=== PATIENT | female | born 1965 | race African-American/Black ===

== ENCOUNTER 2022-03-18 00:51 | Emergency (ER) | payer MEDICAID, OTHER ==
[~2022-03-18] VITALS: Ht 162.6 cm; Wt 113.0 kg
[2022-03-18 00:58] VITALS: BP 147/72
[2022-03-18] MEDS ORDERED: IBUPROFEN 800MG TABLET PO ONE (03:00)
[2022-03-18] MEDS ORDERED: IBUP-2029 MT (03:08)
== END 2022-03-18 03:55 | disposition home or self-care (01) ==
LOC: ER 00:51
DX: R51.9 Headache, unspecified (principal); E11.9 Type 2 diabetes mellitus without complications; I10 Essential (primary) hypertension; Z88.6 Allergy status to analgesic agent; Z88.5 Allergy status to narcotic agent
CPT/HCPCS: 82962; 99282

== ENCOUNTER 2024-01-02 17:21 | Inpatient (IN) | payer MEDICAID ==
[~2024-01-02] VITALS: Ht 162.6 cm; Wt 113.4 kg
[~2024-01-02 17:21] MED LIST: IBUP-2029 MT
[2024-01-02] MEDS: PIPERACILLIN/TAZO 3.375G/50ML 50 ML IV ONE (18:30)
[2024-01-02] MEDS ORDERED: VANCOMYCIN 1G PREMIX 200 ML IV ONE (18:30)
[2024-01-02] MEDS: SODIUM CHLORIDE 0.9% 1,000 ML IV ONE (18:30)
[2024-01-02 19:51] LABS: BASOPHILS % 0.5 % (0.0-2.0); CHLORIDE 107 mEq/L (98-107); HEMATOCRIT. 34.3 % (36.0-48.0); HEMOGLOBIN. 10.9 g/dL (12.0-16.0); MEAN CORPUSCULAR HEMOGLOBIN 28.2 pg (28.0-32.0); MEAN CORPUSCULAR HGB CONC 31.7 g/dL (31.0-37.0); MEAN CORPUSCULAR VOLUME 88.8 fL (81.0-99.0); MEAN PLATELET VOLUME 8.8 fl (7.4-10.4); MONOCYTES % 8.6 % (2.0-8.0); NEUTROPHILS % 74.9 % (40.0-76.0); PLATELET 377 x1000/uL (130-400); POTASSIUM 3.4 mEq/L (3.5-5.1); RED BLOOD CELL COUNT 3.86 mill/uL (4.2-5.4); RED CELL DISTRIBUTION WIDTH 15.8 % (11.6-14.6); SODIUM 140 mEq/L (136-145); WHITE BLOOD COUNT 8.4 x1000/uL (4.5-11.0)
[2024-01-02 19:52] LABS: CALCIUM 9.6 mg/dL (8.7-10.4); CARBON DIOXIDE 24 mEq/L (21-32)
[2024-01-02 19:56] LABS: PARTIAL THROMBOPLASTIN TIME 28.8 sec (23.4-31.0); PROTHROMBIN TIME 11.1 sec (9.6-11.0)
[2024-01-02 19:57] LABS: CREATININE 1.1 mg/dL (0.6-1.0); GLUCOSE 90 mg/dL (70-105); UREA NITROGEN BLOOD 9 mg/dL (9-23)
[2024-01-02 19:58] LABS: TROPONIN I HIGH SENSITIVITY 11 ng/L (3.0-34)
[2024-01-02 19:59] LABS: ALANINE AMINOTRANSFERASE 11 IU/L (10-49); ALBUMIN 4.2 g/dL (3.2-4.8); ASPARTATE AMINOTRANSFERASE 14 IU/L (<34); BILIRUBIN TOTAL 0.5 mg/dL (0.1-1.0); PROTEIN TOTAL 7.7 g/dL (6.0-8.3)
[2024-01-02] MEDS ORDERED: IPRATROPIUM/ALBUTEROL 0.5-3(2.5)MG/3ML NEB HHN PRN (21:30)
[2024-01-02] MEDS ORDERED: ONDANSETRON HCL 4MG/2ML INJ IV PRN (21:30)
[2024-01-02] MEDS ORDERED: DOCUSATE SODIUM 100MG CAPSULE PO PRN (21:30)
[2024-01-02] MEDS ORDERED: PIPERACILLIN/TAZOBACTAM 3.375 G in DEXTROSE 5% WATER 50 ML IV SCH (21:30)
[2024-01-02] MEDS ORDERED: SODIUM CHLORIDE 0.9% 1,000 ML IV SCH (21:30)
[2024-01-02] MEDS ORDERED: LORAZEPAM 2MG/ML INJ IV PRN (21:30)
[2024-01-02] MEDS ORDERED: GUAIFENESIN 200MG/10ML SUGAR FREE UDC PO PRN (21:30)
[2024-01-02] MEDS: PIPERACILLIN/TAZO 3.375G/50ML IV SCH (22:28)
[2024-01-02] MEDS: VANCOMYCIN 2,000 MG in DEXT 5% WATER 500 ML IV NR (23:16)
[2024-01-02 23:29] LABS: PHOSPHORUS 3.3 mg/dL (2.5-4.9)
[2024-01-03] VITALS (7 sets, daily range): BP systolic 104–139; BP diastolic 51–72; PULSE 61–82; RESP 16–19; TEMP 36.2512–37.16964; O2SAT 97–100
[2024-01-03] MEDS: SODIUM CHLORIDE 0.9% 1,000 ML IV SCH (04:45)
[2024-01-03] MEDS: KETOROLAC 10MG TABLET PO PRN (05:08)
[2024-01-03 06:12] LABS: BASOPHILS % 0.3 % (0.0-2.0); EOSINOPHILS % 2.8 % (0.0-5.0); HEMATOCRIT. 32.1 % (36.0-48.0); HEMOGLOBIN. 10.5 g/dL (12.0-16.0); LYMPHOCYTES % 19.1 % (20.0-50.0); MEAN CORPUSCULAR HEMOGLOBIN 28.8 pg (28.0-32.0); MEAN CORPUSCULAR HGB CONC 32.9 g/dL (31.0-37.0); MEAN CORPUSCULAR VOLUME 87.7 fL (81.0-99.0); MEAN PLATELET VOLUME 8.8 fl (7.4-10.4); MONOCYTES % 12.3 % (2.0-8.0); NEUTROPHILS % 65.5 % (40.0-76.0); PLATELET 334 x1000/uL (130-400); RED BLOOD CELL COUNT 3.66 mill/uL (4.2-5.4); RED CELL DISTRIBUTION WIDTH 15.7 % (11.6-14.6); WHITE BLOOD COUNT 7.1 x1000/uL (4.5-11.0)
[2024-01-03 06:20] LABS: CARBON DIOXIDE 26 mEq/L (21-32); CHLORIDE 109 mEq/L (98-107); POTASSIUM 3.4 mEq/L (3.5-5.1); SODIUM 140 mEq/L (136-145)
[2024-01-03 06:21] LABS: CALCIUM 9.3 mg/dL (8.7-10.4)
[2024-01-03] MEDS: POTASSIUM CHLORIDE 20MEQ TABLET SR PO NR ×2 (06:22→16:00)
[2024-01-03 06:26] LABS: CREATININE 0.8 mg/dL (0.6-1.0); GLUCOSE 131 mg/dL (70-105); UREA NITROGEN BLOOD 7 mg/dL (9-23)
[2024-01-03 06:28] LABS: THYROID STIMULATING HORMONE 0.68 uIU/mL (0.55-4.78)
[2024-01-03] MEDS: ENOXAPARIN 30MG/0.3ML SYR SUBCUT SCH (08:12)
[2024-01-03 11:29] LABS: IRON 25 ug/dL (50-170); TRIGLYCERIDE 52 mg/dL (0-150)
[2024-01-03 11:30] LABS: LDL CHOLESTEROL 79 mg/dL (5-100)
[2024-01-03 11:31] LABS: CHOLESTEROL 128 mg/dL (<200); HDL CHOLESTEROL 36 mg/dL (>65)
[2024-01-03 11:32] LABS: TOTAL IRON BINDING CAPACITY 316 ug/dl (250-425)
[2024-01-03 11:35] LABS: VITAMIN B12 SERUM 753 pg/mL (211-911)
[2024-01-03 11:36] LABS: FERRITIN 142 ng/mL (10-291); FOLIC ACID (FOLATE) SERUM > 20.00 ng/mL (>5.38)
[2024-01-03] MEDS: PIPERACILLIN/TAZO 3.375G/50ML IV SCH (15:03)
[2024-01-03] MEDS ORDERED: ACETAMINOPHEN 325MG TABLET PO PRN (15:15)
[2024-01-03 18:11] LABS: CREATINE KINASE MB FRACTION 0.6 ng/mL (0.5-3.6)
[2024-01-03] MEDS: FUROSEMIDE 20MG/2ML VIAL IVP NR (20:19)
[2024-01-03] MEDS: VANCOMYCIN 1.25GM PMX (XELLIA) 250 ML IV SCH (21:06)
[2024-01-04] VITALS: BP 139/56; PULSE 87; RESP 20; TEMP 37.16964; O2SAT 100
[2024-01-04 04:00] VITALS: BP 137/68; PULSE 92; RESP 16; TEMP 36.28068; O2SAT 98
[2024-01-04 06:06] LABS: HEMATOCRIT 35.2 % (36.0-48.0); HEMOGLOBIN 11.5 g/dL (12.0-16.0); MEAN CORPUSCULAR HGB CONC 32.7 g/dL (31.0-37.0); MEAN CORPUSCULAR VOLUME 88.4 fL (81.0-99.0); PLATELET 349 x1000/uL (130-400); RED BLOOD CELL COUNT 3.98 mill/uL (4.2-5.4); RED CELL DISTRIBUTION WIDTH 15.5 % (11.6-14.6); WHITE BLOOD COUNT 5.3 x1000/uL (4.5-11.0)
[2024-01-04 06:19] LABS: CARBON DIOXIDE 24 mEq/L (21-32); CHLORIDE 108 mEq/L (98-107); POTASSIUM 3.9 mEq/L (3.5-5.1); SODIUM 141 mEq/L (136-145)
[2024-01-04 06:20] LABS: CALCIUM 9.7 mg/dL (8.7-10.4)
[2024-01-04 06:24] LABS: GLUCOSE 105 mg/dL (70-105)
[2024-01-04 06:27] LABS: UREA NITROGEN BLOOD < 5 mg/dL (9-23)
[2024-01-04 08:00] VITALS: BP 138/81; PULSE 82; RESP 20; TEMP 37.05852; O2SAT 99
[2024-01-04] MEDS: KETOROLAC 15MG/ML VIAL IV PRN (10:35)
[2024-01-04 12:00] VITALS: BP 140/68; PULSE 74; RESP 18; TEMP 36.50292; O2SAT 98
[2024-01-04] MEDS: FUROSEMIDE 20MG/2ML VIAL IVP SCH (12:01)
[2024-01-04 16:00] VITALS: BP 146/73; PULSE 83; RESP 19; TEMP 37.05852; O2SAT 98
[2024-01-04 20:00] VITALS: BP 146/72; PULSE 74; RESP 20; TEMP 36.61404; O2SAT 100
[2024-01-05 04:00] VITALS: BP 144/70; PULSE 69; RESP 17; TEMP 35.8362; O2SAT 99
[2024-01-05 08:00] VITALS: BP 146/75; PULSE 78; RESP 19; TEMP 36.44736; O2SAT 95
[2024-01-05] MEDS: FERROUS SULFATE 325MG TABLET PO SCH (09:47)
[2024-01-05 10:18] LABS: HEMOGLOBIN 10.5 g/dL (12.0-16.0); MEAN CORPUSCULAR HGB CONC 31.9 g/dL (31.0-37.0); MEAN CORPUSCULAR VOLUME 87.9 fL (81.0-99.0); PLATELET 314 x1000/uL (130-400); RED BLOOD CELL COUNT 3.75 mill/uL (4.2-5.4); RED CELL DISTRIBUTION WIDTH 15.7 % (11.6-14.6); WHITE BLOOD COUNT 4.4 x1000/uL (4.5-11.0)
[2024-01-05 10:33] LABS: CALCIUM 9.2 mg/dL (8.7-10.4); CHLORIDE 108 mEq/L (98-107); POTASSIUM 3.5 mEq/L (3.5-5.1); SODIUM 141 mEq/L (136-145)
[2024-01-05 10:34] LABS: CARBON DIOXIDE 26 mEq/L (21-32)
[2024-01-05 10:39] LABS: GLUCOSE 134 mg/dL (70-105); UREA NITROGEN BLOOD 6 mg/dL (9-23)
[2024-01-05 12:00] VITALS: BP 148/69; PULSE 70; RESP 19; TEMP 35.94732; O2SAT 99
[2024-01-05 16:00] VITALS: BP 145/61; PULSE 75; RESP 20; TEMP 36.55848; O2SAT 99
[2024-01-05 20:00] VITALS: BP 140/65; PULSE 80; RESP 20; TEMP 37.00296; O2SAT 99
[2024-01-05] MEDS: CLONIDINE 0.1MG TABLET PO PRN (20:39)
[2024-01-06] VITALS: BP 148/62; PULSE 82; RESP 20; TEMP 36.72516; O2SAT 99
[2024-01-06 04:00] VITALS: BP 153/71; PULSE 84; RESP 20; TEMP 36.72516; O2SAT 97
[2024-01-06 07:17] LABS: CARBON DIOXIDE 26 mEq/L (21-32); CHLORIDE 109 mEq/L (98-107); POTASSIUM 3.9 mEq/L (3.5-5.1); SODIUM 141 mEq/L (136-145)
[2024-01-06 07:18] LABS: CALCIUM 9.1 mg/dL (8.7-10.4)
[2024-01-06 07:23] LABS: CREATININE 0.9 mg/dL (0.6-1.0); GLUCOSE 85 mg/dL (70-105); HEMATOCRIT 32.3 % (36.0-48.0); HEMOGLOBIN 10.5 g/dL (12.0-16.0); MEAN CORPUSCULAR HEMOGLOBIN 28.4 pg (28.0-32.0); MEAN CORPUSCULAR HGB CONC 32.4 g/dL (31.0-37.0); MEAN CORPUSCULAR VOLUME 87.6 fL (81.0-99.0); PLATELET 326 x1000/uL (130-400); RED BLOOD CELL COUNT 3.69 mill/uL (4.2-5.4); RED CELL DISTRIBUTION WIDTH 15.6 % (11.6-14.6); UREA NITROGEN BLOOD 6 mg/dL (9-23); WHITE BLOOD COUNT 4.9 x1000/uL (4.5-11.0)
[2024-01-06 08:00] VITALS: BP 151/62; PULSE 79; RESP 18; TEMP 36.3918; O2SAT 98
[2024-01-06 12:00] VITALS: BP 165/72; PULSE 75; RESP 18; TEMP 36.89184; O2SAT 100
[2024-01-06] MEDS ORDERED: SULF1TAB48 MT (14:16)
[2024-01-06] MEDS ORDERED: AMOX1TAB16 MT (14:16)
[2024-01-06 16:00] VITALS: BP 140/66; PULSE 74; RESP 18; TEMP 37.00296; O2SAT 100
[2024-01-06 20:00] VITALS: BP 117/49; PULSE 75; RESP 18; TEMP 36.61404; O2SAT 98
[2024-01-07] VITALS: BP 140/62; PULSE 77; RESP 19; TEMP 36.78072; O2SAT 99
[2024-01-07] MEDS: KETOROLAC 15MG/ML VIAL IV PRN ×2 (03:37→11:26)
[2024-01-07 04:00] VITALS: BP 128/50; PULSE 68; RESP 18; TEMP 36.89184; O2SAT 97
[2024-01-07 08:00] VITALS: BP 156/59; PULSE 68; RESP 17; TEMP 36.3918; O2SAT 98
[2024-01-07 12:00] VITALS: BP 132/64; PULSE 73; RESP 18; TEMP 37.00296; O2SAT 97
[2024-01-07 16:00] VITALS: BP 140/62; PULSE 76; RESP 18; TEMP 36.9474; O2SAT 97
[2024-01-07 20:00] VITALS: BP 134/56; PULSE 74; RESP 19; TEMP 36.16956; O2SAT 100
[2024-01-08] VITALS: BP 112/56; PULSE 89; RESP 18; TEMP 35.61396; O2SAT 99
[2024-01-08 07:09] LABS: CARBON DIOXIDE 25 mEq/L (21-32); CHLORIDE 109 mEq/L (98-107); POTASSIUM 3.7 mEq/L (3.5-5.1); SODIUM 142 mEq/L (136-145)
[2024-01-08 07:10] LABS: CALCIUM 9.1 mg/dL (8.7-10.4)
[2024-01-08 07:14] LABS: CREATININE 0.9 mg/dL (0.6-1.0)
[2024-01-08 07:15] LABS: GLUCOSE 86 mg/dL (70-105); UREA NITROGEN BLOOD 6 mg/dL (9-23)
[2024-01-08 07:22] LABS: HEMOGLOBIN 10.3 g/dL (12.0-16.0); MEAN CORPUSCULAR HEMOGLOBIN 28.5 pg (28.0-32.0); MEAN CORPUSCULAR HGB CONC 32.3 g/dL (31.0-37.0); MEAN CORPUSCULAR VOLUME 88.1 fL (81.0-99.0); PLATELET 351 x1000/uL (130-400); RED BLOOD CELL COUNT 3.64 mill/uL (4.2-5.4); RED CELL DISTRIBUTION WIDTH 15.6 % (11.6-14.6); WHITE BLOOD COUNT 5.8 x1000/uL (4.5-11.0)
[2024-01-08 08:00] VITALS: BP 141/56; PULSE 69; RESP 18; TEMP 36.72516; O2SAT 95
[2024-01-08 12:00] VITALS: BP 137/55; PULSE 71; RESP 19; TEMP 36.72516; O2SAT 96
[2024-01-08 16:00] VITALS: BP 158/87; PULSE 68; RESP 18; TEMP 36.61404; O2SAT 100
[2024-01-08 20:00] VITALS: BP 140/58; PULSE 79; RESP 18; TEMP 37.00296; O2SAT 100
[2024-01-08] MEDS: VANCOMYCIN 1.5GM/250ML IV SCH (21:30)
[2024-01-09] VITALS: BP 121/65; PULSE 61; RESP 17; TEMP 36.16956; O2SAT 98
[2024-01-09 04:00] VITALS: BP 119/60; PULSE 71; RESP 20; TEMP 36.3918; O2SAT 99
[2024-01-09 08:00] VITALS: BP 123/50; PULSE 72; RESP 18; TEMP 36.05844; O2SAT 100
[2024-01-09 12:00] VITALS: BP 131/71; PULSE 68; RESP 18; TEMP 35.78064; O2SAT 96
[2024-01-09 16:00] VITALS: BP 142/78; PULSE 70; RESP 20; TEMP 36.55848; O2SAT 99
[2024-01-09 20:00] VITALS: BP 140/51; PULSE 72; RESP 19; TEMP 36.3918; O2SAT 99
[2024-01-10] VITALS: BP 134/57; PULSE 73; RESP 16; TEMP 37.16964; O2SAT 100
[2024-01-10 04:00] VITALS: BP 162/73; PULSE 72; RESP 19; TEMP 37.05852; O2SAT 100
[2024-01-10] MEDS: KETOROLAC 15MG/ML VIAL IV PRN (15:40)
[2024-01-10 20:00] VITALS: BP 140/60; PULSE 86; RESP 16; TEMP 36.3918; O2SAT 99
[2024-01-11] VITALS: BP 135/61; PULSE 75; RESP 19; TEMP 36.78072; O2SAT 98
[2024-01-11 04:00] VITALS: BP 142/68; PULSE 85; RESP 17; TEMP 36.28068; O2SAT 100
[2024-01-11 08:00] VITALS: BP 144/58; PULSE 70; RESP 18; TEMP 36.50292; O2SAT 96
[2024-01-11 12:00] VITALS: BP 137/50; PULSE 72; RESP 17; TEMP 36.3918; O2SAT 98
[2024-01-11 16:00] VITALS: BP 148/66; PULSE 76; RESP 18; TEMP 35.5584; O2SAT 97
[2024-01-11] MEDS: KETOROLAC 30MG/ML VIAL IV STA (18:47)
[2024-01-11] MEDS ORDERED: KETOROLAC 15MG/ML VIAL IV PRN (19:15)
[2024-01-11 20:00] VITALS: BP 121/51; PULSE 80; RESP 18; TEMP 36.16956; O2SAT 95
[2024-01-12 04:00] VITALS: BP 127/62; PULSE 81; RESP 18; TEMP 35.94732; O2SAT 96
[2024-01-12] MEDS: HYDROCODONE/ACETAMINOPHEN 5/325MG TABLET PO NR (06:52)
[2024-01-12 08:00] VITALS: BP 112/70; PULSE 74; RESP 18; TEMP 36.3918; O2SAT 97
[2024-01-12] MEDS: FUROSEMIDE 20MG TABLET PO SCH (10:06)
[2024-01-12] MEDS ORDERED: HYDROCODONE/ACETAMINOPHEN 5/325MG TABLET PO PRN (10:30)
[2024-01-12] MEDS ORDERED: NALOXONE HCL 0.4MG/ML VIAL IV PRN (10:45)
[2024-01-12 12:00] VITALS: BP 145/72; PULSE 87; RESP 19; TEMP 35.78064; O2SAT 95
[2024-01-12] MEDS ORDERED: ACETAMINOPHEN 325MG TABLET PO PRN (15:15)
[2024-01-12 16:00] VITALS: BP 135/51; PULSE 71; RESP 18; TEMP 36.50292; O2SAT 99
[2024-01-12] MEDS: IBUPROFEN 400MG TABLET PO PRN (16:27)
[2024-01-12] MEDS: SULFAMETHOXAZOLE/TRIMETHOPRIM 800/160MG TABLET PO SCH (18:08)
[2024-01-12] MEDS: AMOXICILLIN/POTASSIUM CLAVULANATE 875/125MG TAB PO SCH (18:08)
[2024-01-12 20:00] VITALS: BP 125/62; PULSE 85; RESP 18; TEMP 36.89184; O2SAT 99
[2024-01-13 04:00] VITALS: BP 127/62; PULSE 80; RESP 18; TEMP 37.11408; O2SAT 97
[2024-01-13 08:00] VITALS: BP 137/56; PULSE 69; RESP 19; TEMP 36.05844; O2SAT 96
[2024-01-13 12:00] VITALS: BP 136/74; PULSE 66; RESP 18; TEMP 36.61404; O2SAT 97
[2024-01-13 16:00] VITALS: BP 135/54; PULSE 64; RESP 19; TEMP 36.50292; O2SAT 97
[2024-01-13 20:00] VITALS: BP 145/63; PULSE 72; RESP 18; TEMP 37.11408; O2SAT 100
[2024-01-14] VITALS: BP 118/46; PULSE 69; RESP 18; TEMP 36.78072; O2SAT 99
[2024-01-14 04:00] VITALS: BP 142/69; PULSE 64; RESP 18; TEMP 36.61404; O2SAT 99
[2024-01-14 08:00] VITALS: BP 137/59; PULSE 68; RESP 18; TEMP 36.3918; O2SAT 95
[2024-01-14] MEDS: KETOROLAC 10MG TABLET PO NR ×2 (11:32→22:28)
[2024-01-14 12:00] VITALS: BP 143/67; PULSE 62; RESP 18; TEMP 36.61404; O2SAT 98
[2024-01-14 16:00] VITALS: BP 131/86; PULSE 65; RESP 18; TEMP 36.50292; O2SAT 100
[2024-01-14 20:00] VITALS: BP 128/42; PULSE 65; RESP 18; TEMP 36.50292; O2SAT 99
[2024-01-15] VITALS: BP 176/75; PULSE 64; RESP 18; TEMP 37.11408; O2SAT 97
[2024-01-15 04:00] VITALS: BP 121/46; PULSE 66; RESP 18; TEMP 36.61404; O2SAT 99
[2024-01-15 08:00] VITALS: BP 137/67; PULSE 65; RESP 18; TEMP 36.72516; O2SAT 100
[2024-01-15 12:00] VITALS: BP 153/73; PULSE 60; RESP 18; TEMP 36.50292; O2SAT 98
[2024-01-15 16:00] VITALS: BP 127/72; PULSE 64; RESP 18; TEMP 36.78072; O2SAT 100
[2024-01-15 20:00] VITALS: BP 155/77; PULSE 65; RESP 20; TEMP 37.00296; O2SAT 100
[2024-01-15] MEDS: ENOXAPARIN 40MG/0.4ML SYR SUBCUT SCH (21:34)
[2024-01-16] VITALS: BP 140/62; PULSE 71; RESP 16; TEMP 36.33624; O2SAT 98
[2024-01-16 04:00] VITALS: BP 149/70; PULSE 62; RESP 19; TEMP 36.114; TEMP 36.11400; O2SAT 100
[2024-01-16 06:33] VITALS: RESP 19
[2024-01-16 16:03] VITALS: BP 120/70; PULSE 70; TEMP 97.9; O2SAT 98
== END 2024-01-16 17:30 | disposition home health service (06) | DRG 383 ==
LOC: ER 17:21 → 6EST 20:29
PROVIDERS: ADMIT Preventive Medicine Clinical Informatics; ATTEND Preventive Medicine Clinical Informatics
DX: L03.116 Cellulitis of left lower limb (principal); D64.9 Anemia, unspecified; E11.9 Type 2 diabetes mellitus without complications; E87.6 Hypokalemia; E66.01 Morbid (severe) obesity due to excess calories; I10 Essential (primary) hypertension; W57.XXXA Bitten or stung by nonvenomous insect and other nonvenomous arthropods, initial encounter; R79.1 Abnormal coagulation profile; Z20.822 Contact with and (suspected) exposure to COVID-19; Z68.41 Body mass index [BMI] 40.0-44.9, adult; Z59.00 Homelessness unspecified; Z88.6 Allergy status to analgesic agent; Z88.5 Allergy status to narcotic agent; Z59.02 Unsheltered homelessness; Y93.89 Activity, other specified; Y92.89 Other specified places as the place of occurrence of the external cause; Y99.8 Other external cause status; I83.12 Varicose veins of left lower extremity with inflammation
CPT/HCPCS: 36415; 71045; 73700; 80048; 80053; 80061; 80202; 82550; 82553; 82607; 82728; 82746; 82962; 83036; 83540; 83550; 83605; 83735; 83880; 84100; 84145; 84439; 84443; 84484; 85025; 85027; 85379; 87426; 93005; 93970; 97116; 97162; 97166; 99285; C1893; J1650; J1885; J1940; J2543; J3370; J7030; J7060